=== PATIENT | female | born 1985 | race Two or more races ===

== ENCOUNTER 2022-08-13 06:36 | Inpatient (IN) | payer OTHER, SELFPAY ==
[2022-08-13] VITALS (123 sets, daily range): BP systolic 90–129; BP diastolic 36–97; PULSE 73–112; RESP 18; TEMP 36.6–37.2; O2SAT 97–100; BMI 26.1
[2022-08-13 07:12] LABS: Basophils Percent Auto 0.3 % (0.2-1.2); Hematocrit 37.5 % (37.0-47.0); Hemoglobin 12.4 g/dL (12.0-15.0); Immature Granulocyte Absolute 0.09 K/mm3 (0.00-0.031); Immature Granulocyte Percent A 0.8 % (0-0.5); Lymphocytes Absolute Auto 1.82 K/mm3 (0.9-3.2); Lymphocytes Percent Auto 17.1 % (18.3-44.2); Mean Corpuscular HGB Conc 33.1 g/dl (32-36); Mean Corpuscular Hemoglobin 27.7 pg (26-34); Mean Corpuscular Volume 83.7 fl (80-100); Mean Platelet Volume 10.2 fl (7.4-10.4); Monocytes Absolute Auto 0.5 K/mm3 (0.1-0.6); Monocytes Percent Auto 5.1 % (2.6-8.5); Neutrophils Absolute Auto 8.2 K/mm3 (1.3-6.7); Neutrophils Percent Auto 76.7 % (45.5-73.1); Platelet Count Result 228 k/mm3 (150-375); Red Blood Count 4.48 M/mm3 (4.2-5.4); Red Cell Distribution Width 14.6 % (11.5-14.5); White Blood Count 10.6 K/mm3 (4.5-10.0)
[2022-08-13] MEDS: OXYTOCIN 30 UNITS/NS 500 ML 30 UNITS/500 ML BAG IV CONT (07:40)
[2022-08-13] MEDS: LACTATED RINGERS 1,000 ML 125 ML IV CONT ×2 (07:41→12:50)
--- NOTE | 2022-08-13 07:50 | LDADM ---
This patient, Bob Park, was admitted to Labor/Delivery/Recovery 103 on 08/13/22 at 06:36. Plans for labor, pain management and were discussed with patient. Patient/family oriented to hospital policies and general routines including ID bracelet, bed and alarms, visiting hours, pain management, procedures, bathroom and other care routines, personal items, smoking policy, room service/diet and guest tray routines, security routines, and visiting hours. Patient/Family are encouraged to report perceived risks to care and to ask questions if they do not understand what they are told or what they should do. See OBIX for further documentation.
--- NOTE | 2022-08-13 07:52 | WPDOBADMIT ---
Obstetrics - Admit Note Admission Note: record reviewed. No pertinent additions to the history and/or any subsequent changes in the physical findings that are not consistent with the expected course of the were found. IOL, elective, anticipate vaginal delivery Additions to the history and/or subsequent changes in the physical findings follow. None.
--- NOTE | 2022-08-13 12:43 | PM.OBPNLAB ---
Pain Control Date/time seen: 08/13/22 12:43 Pelvic Exam Comments: /-1 AROM large amount of clear odorless fluid
--- NOTE | 2022-08-13 13:50 | WPDANESEPP ---
Anes - Eval Pre Procedure Procedure: Labor Epidural Date/Time: 08/13/22 13:50 Surgeon: Satnam Preop Diagnosis: Pain during labor Pre Op Diagnosis: iol Patient Data Age: 37 Gender: F Height: 1.63 m Weight: 69 kg Last Vital Signs Temp 37.0 C 08/13/22 13:00 Pulse 89 08/13/22 13:30 BP 129/81 08/13/22 13:30 Pulse Ox 100 08/13/22 13:45 O2 Del Method Room Air 08/13/22 07:47 Allergies Allergy/AdvReac Type Severity Reaction Status Date / Time salmon oil Allergy Swelling Verified 07/21/22 12:34 of Lip/Tongue/Throat Home Medications Medication Instructions Recorded Confirmed Type vits no.126-ferrous fum tablet PO DAILY 08/13/22 History 28 mg iron-folic acid 800 mcg tablet (Classic ) Laboratory Tests 08/13/22 08/13/22 08/13/22 06:52 06:52 06:52 WBC 10.6 K/mm3 H K/mm3 (4.5-10.0) RBC 4.48 M/mm3 M/mm3 (4.2-5.4) Hgb 12.4 g/dL g/dL (12.0-15.0) Hct 37.5 % % (37.0-47.0) MCV 83.7 fl fl (80-100) MCH 27.7 pg pg (26-34) MCHC 33.1 g/dl g/dl (32-36) RDW 14.6 % H % (11.5-14.5) Plt Count 228 k/mm3 k/mm3 (150-375) MPV 10.2 fl fl (7.4-10.4) Immature Gran % (Auto) 0.8 % H % (0-0.5) Neut % (Auto) 76.7 % H % (45.5-73.1) Lymph % (Auto) 17.1 % L % (18.3-44.2) Lyon % (Auto) 5.1 % % (2.6-8.5) Eos % (Auto) 0.0 % % (0-4.4) Baso % (Auto) 0.3 % % (0.2-1.2) Lymph # (Auto) 1.82 K/mm3 K/mm3 (0.9-3.2) Lyon # (Auto) 0.5 K/mm3 K/mm3 (0.1-0.6) Eos # (Auto) 0.0 K/mm3 K/mm3 (0-0.3) Baso # (Auto) 0.0 K/mm3 K/mm3 (0.0-0.1) Abs Immat Gran (auto) 0.09 K/mm3 H K/mm3 (0.00-0.031) Absolute Neuts (auto) 8.2 K/mm3 H K/mm3 (1.3-6.7) Absolute Nucleated RBC 0.0 K/mm3 K/mm3 (0.0-0.012) Nucleated RBC % 0.0 % % (0.0-0.2) RPR Pending Blood Type A Positive Antibody Screen Negative Patient hx anesthesia problems: none Family hx anesthesia problems: none Results Review: All pre-operative results and documents have been reviewed as part of the pre-operative evaluation. [facility] Family History Family History Other No pertinent family history Social History Social History Smoking status: Never smoker Substance use: never Lack of Transportation: No Lack of Food: Never True Current Housing: I Have Housing Concerned About Future Housing: No Difficulty Paying Gas/Electric Bills: No Difficulty Paying for Meds: No Currently Unemployed: No Education: Associate Degree Difficulty w/ Childcare or Family Care: No Spiritual care concerns: No Exam Day of Procedure 08/13/22 13:50 Patient weight: normal Neurological: alert and oriented
[2022-08-13 16:15] LABS: Rapid Plasma Reagin Non-Reactive (NonReactive)
--- NOTE | 2022-08-13 16:59 | PM.OBPRVD ---
OB - Delivery Note Procedure Delivery date: 08/13/22 Procedure: vaginal delivery Induction method: AROM and Per Pitocin Protocol Delivery monitor: External FHT, External Uterine and Internal Uterine Route of delivery: Laceration Description: Superficial Delivery repair: vicryl Specimen: No Quantitative Blood Loss (ml): 75 Anesthesia type: Epidural Disposition: Floor [place] Baby Date of : 08/13/22 Time of : 16:48 Weeks of gestation at delivery: 39 gender: Female Weight (pounds): 7 Weight (ounces): 1 presentation: vertex position: Left Occiput Anterior Placenta delivery description: Spontaneous Cord Vessel Description: 3 Vessels, Clamped/Cut and Delayed Cord Clamping score one minute: 9 score five minutes: 9 Narrative: mother and baby skin to skin in stable condition
[2022-08-13] MEDS: OXYTOCIN 30 UNITS/NS 500 ML 30 UNITS/500 ML BAG 125 UNITS IV CONT (17:28)
[2022-08-13] MEDS: IBUPROFEN 600 MG TABLET PO (18:30)
--- NOTE | 2022-08-13 19:18 | PC.NURSE ---
Patient transferred to post room #276 per wheelchair from labor and delivery. Support person present. Oriented to unit, room, information board, rooming in, admission packet and security measures. Patient verbalizes understanding.
[2022-08-14] VITALS: BP 97/64; PULSE 75; RESP 18; TEMP 36.8
[2022-08-14 04:30] VITALS: BP 88/47; PULSE 74; RESP 16; TEMP 36.7
[2022-08-14] MEDS: IBUPROFEN 600 MG TABLET PO ×2 (04:39→22:15)
[2022-08-14 05:22] LABS: Hematocrit 30.5 % (37.0-47.0)
[2022-08-14 07:25] VITALS: BP 114/54; PULSE 70; RESP 16; TEMP 37; O2SAT 100
--- NOTE | 2022-08-14 08:23 | PM.OBPNVD ---
OB - PN: Subj Subjective Date/time seen: 08/14/22 08:23 Patient comments: no complaints, pain well controlled, incisional pain, tolerating diet and flatus present OB - PN: Obj Data Labs 08/14/22 04:34 Labs: Laboratory Results - last 24 hr 08/13/22 08/13/22 08/14/22 06:52 06:52 04:34 Hgb 10.0 L Hct 30.5 L RPR Non-reactive Blood Type A Positive Antibody Screen Negative OB - PN A/P Plan day: 1 Plan: routine care Comments: No problems, routine care Time Spent With Patient Time: Total time spent is greater than 50% in coordination of care (as documented) at patient's floor/unit and/or counseling patient: Exam Const: General: comfortable, no acute distress and alert Resp: Effort & Inspection: normal respiratory effort Auscultation: no crackles, no rales and no rhonchi Cardio: Rate: regular rate Heart sounds: no click, no murmurs and no rubs GI: Inspection: non-distended GI Palp: No Tenderness to palpation present (GI) Auscultation: normal bowel sounds Other: Incision - CDI Extrem: General: normal to inspection, no pedal edema and no calf tenderness
[2022-08-14 11:44] VITALS: BP 106/65; PULSE 85; RESP 16; TEMP 36.7; O2SAT 100
--- NOTE | 2022-08-14 12:41 | WPDANLDPN2 ---
Anes-Prog Note L&D Date/Time: 08/14/22 12:41 Neuro status: Neuro function grossly intact. Vital Signs: Last Vital Signs Temp 36.7 C 08/14/22 11:44 Pulse 85 08/14/22 11:44 Resp 16 08/14/22 11:44 BP 106/65 08/14/22 11:44 Pulse Ox 100 08/14/22 11:44 O2 Del Method Room Air 08/14/22 07:46 Pain score (VAS): 0 Patient feedback: Patient satisfied with anesthetic care.
[2022-08-14 19:10] VITALS: BP 102/61; PULSE 69; RESP 18; TEMP 36.4
[2022-08-14] MEDS: DOCUSATE SODIUM 100 MG CAPSULE PO (19:10)
[2022-08-15] MEDS: IBUPROFEN 600 MG TABLET PO (04:59)
[2022-08-15 07:35] VITALS: BP 112/58; PULSE 72; RESP 16; TEMP 36.9; O2SAT 100
--- NOTE | 2022-08-15 07:55 | PM.OBPNVD ---
OB - PN: Subj Subjective Date/time seen: 08/15/22 07:55 doing well, bottle feeding OB - PN: Obj Data Labs 08/14/22 04:34 OB - PN A/P Plan day: 2 Plan: routine care and discharge home Time Spent With Patient Time: Total time spent is greater than 50% in coordination of care (as documented) at patient's floor/unit and/or counseling patient: Review of Systems Review of Systems: All systems reviewed & are unremarkable except as noted in HPI and below Exam Const: General: cooperative, healthy appearing and comfortable
--- NOTE | 2022-08-15 07:56 | P.DS_ITS ---
DS: Admitting Diagnosis Discharge Date 08/15/22 Admitting Diagnosis IOL DS: Discharge Diagnosis Discharge Diagnosis (1) Vaginal delivery: Code(s): O80 - Encounter for full-term uncomplicated delivery Status: Acute OB - DS: Summary OB Procedures : None OB Procedures Intrapartum: Spontaneous Vag Delivery OB Procedures: : None Time Spent with Patient Time attestation: Total time spent providing and/or coordinating discharge services: Discharge Plan Discharge Attending physician on discharge: Bharti Hay Discharging Clinician: Aida Chan Patient Disposition: Home, Self-Care Activity: pelvic rest Diet: regular Patient Instructions: Antibiotic Form Stand Alone Forms: General Discharge Information Follow-up/Referrals: Aida Chan CNM [Certified Nurse Senior Housekeeper] - 4 Weeks Discharge Medications: New ibuprofen 600 mg Tablet 600 mg PO Q6H PRN (Reason: Cramping) Qty: 30 0RF Continued Classic 28 mg iron- 800 mcg Tablet PO DAILY Date of admission: 08/13/22 06:36 Primary Care Provider: PHYSICIAN,QA SOFTWARE TESTER Admitting Provider: Bharti Hay Attending physician on admission: Bharti Hay Condition: Stable
[2022-08-16 08:38] VITALS: BP 113/62; PULSE 71; RESP 20; TEMP 37.6; O2SAT 99
== END 2022-08-15 10:35 | disposition home or self-care (01) | DRG 560 ==
LOC: ANHLDR 06:42 → ANHOB2 19:24
PROVIDERS: Advanced Practice Midwife; Admitting Provider Obstetrics & Gynecology; Visit Provider Obstetrics & Gynecology
DX: O36.8330 Maternal care for abnormalities of the fetal heart rate or rhythm, third trimester, not applicable or unspecified (principal); O70.0 First degree perineal laceration during delivery; Z37.0 Single live birth; Z3A.39 39 weeks gestation of pregnancy
CPT/HCPCS: 36415; 85014; 85018; 85025; 86592; 86850; 86900; 86901; A9270; J2590; J2795; J7120